=== PATIENT | male | born 1950 | race Caucasian/White ===

== ENCOUNTER 2023-05-13 17:21 | Inpatient (IN) | payer MEDICARE ==
[2023-05-13 20:06] LABS: Basophils # (A) 0.1 k/uL (0-0.2); Basophils % (A) 1 %; Eosinophils # (A) 0.1 k/uL (0-0.7); Eosinophils % (A) 1 %; HCT 47.2 % (39.0-53.0); Lymphocytes # (A) 1.8 k/uL (1.0-4.8); Lymphocytes % (A) 19 %; MCH 31.4 pg (25.0-35.0); MCV 92.3 fL (80.0-100.0); Mean Platelet Volume 9.4; Monocytes # (A) 0.7 k/uL (0-1.0); Monocytes % (A) 7 %; Neutrophils # (A) 6.8 k/uL (1.3-7.7); Neutrophils % (A) 71 %; Platelet Count 169 k/uL (150-450); RBC 5.11 m/uL (4.30-5.90); WBC 9.6 k/uL (3.8-10.6)
[2023-05-13 20:23] LABS: ALT 30 U/L (4-49); AST 41 U/L (17-59); African American GFR (CKD) 65 (>60 ml/min/1.73 sqM); Albumin 4.5 g/dL (3.5-5.0); Alkaline Phosphatase 67 U/L (38-126); Amylase 75 U/L (30-110); Anion Gap 12 mmol/L; Blood Urea Nitrogen 16 mg/dL (9-20); C Reactive Protein 3.4 mg/dL (<1.0); Calcium 9.2 mg/dL (8.4-10.2); Carbon Dioxide 23 mmol/L (22-30); Chloride 105 mmol/L (98-107); Glucose 85 mg/dL (74-99); Lipase 339 U/L (23-300); Non-African American GFR(CKD) 56 (>60 ml/min/1.73 sqM); Potassium 4.4 mmol/L (3.5-5.1); Sodium 140 mmol/L (137-145); Total Protein 7.8 g/dL (6.3-8.2)
--- NOTE | 2023-05-13 21:40 | CT ---
EXAMINATION TYPE: CT abdomen pelvis wo con DATE OF EXAM: 05/13/2023 COMPARISON: None HISTORY: 72-year-old male abdominal pain, possible diverticulitis CT DLP: 1322.4 mGycm. Automated exposure control for dose reduction was used. TECHNIQUE: Contiguous axial scanning of the abdomen and pelvis without IV contrast. Coronal and sagit vianney reconstructions performed. FINDINGS: Heart normal size without pericardial effusion. RCA coronary artery calcifications noted. Some depend ent atelectasis posterior lung bases. No pleural effusion. Mildly diminished attenuation of the hepatic parenchyma. Findings compatible with hepatic steatosis. Small layering gallstones within the lumen of the gallbladder measuring up to 9 mm. Possible distal b ile duct choledocholithiasis with multiple stones measuring up to 5 mm, coronal image 51 and axial im age 33. Adrenal glands, spleen, and pancreas otherwise within normal limits. A number of bilateral renal cortical cysts measuring up to 4.9 cm. No dilated small bowel, free fluid, or free air. No mesenteric or retroperitoneal lymphadenopathy. Normal appendix. Mild stool burden. Left-sided colonic diverticulosis. There is moderate inflammatory wall thickening and surrounding fat stranding at the proximal sigmoid colon. Bladder nondistended. Patulous left inguinal canal. Normal size prostate gland. No abnormal fluid col lection in the pelvis or pelvic lymphadenopathy. Bones: Moderate to advanced multilevel spondylotic change. Possible focal severe spinal canal stenosi s L2-L3 and moderate at L3-L4. Baastrup's disease. IMPRESSION: 1. Exam positive for acute diverticulitis involving the proximal sigmoid colon with moderate associa rj inflammation. No abscess or air. 2. Possible distal bile duct choledocholithiasis with multiple stones measuring up to [address] with alkaline phosphatase and bilirubin levels. Patient may need to follow up with GI. No dandre bi liary ductal dilatation appreciated at this time. Additional cholelithiasis. 3. Hepatic steatosis. Multiple bilateral renal cysts measuring up to 4.9 cm.
[2023-05-13] MEDS ORDERED: LEVOFLOXACIN 750 MG TAB PO STA (22:31)
[2023-05-13] MEDS ORDERED: metroNIDAZOLE 500 MG TAB PO STA (22:31)
--- NOTE | 2023-05-13 22:33 | ED ---
Abdominal Pain HPI - General Chief Complaint: Abdominal Pain Stated Complaint: diverticulitis Time Seen by Provider: 05/13/23 19:33 Source: patient Mode of arrival: ambulatory Limitations: no limitations - History of Present Illness Initial Comments: This patient is 72-year-old man who resides in [place] but is now summering here. He states that he developed abdominal pain that seemed more in the left lower quadrant a number of days ago, and it has gradually seemed to worsen and now involves his entire low abdomen. He states that the symptoms are very similar to previous episode of diverticulitis that he had. He has not noted change in urination or bowel movements. There is nausea no vomiting. MD Complaint: abdominal pain -: days(s) Location: LLQ Radiation: none Migration to: no migration Severity: moderate Quality: dull Consistency: constant Improves With: nothing Worsens With: nothing Associated Symptoms: denies other symptoms - Related Data Home Medications Medication Instructions Recorded Confirmed Budesonide [Pulmicort Flexhaler] 1 puff INHALATION RT-HS 05/13/23 05/13/23 Cetirizine HCl [Zyrtec] 10 mg PO DAILY 05/13/23 05/13/23 Dexlansoprazole [Dexilant] 60 mg PO DAILY 05/13/23 05/13/23 Fluoride (Sodium) [Sodium Fluoride 1 applic DENTAL DAILY 05/13/23 05/13/23 5000 Plus] Fluticasone Nasal Campbell [Flonase 1 spray EA NOSTRIL HS 05/13/23 05/13/23 Nasal Campbell] Valsartan 320 mg PO DAILY 05/13/23 05/13/23 Zaleplon [Sonata] 10 mg PO HS 05/13/23 05/13/23 hydrALAZINE HCL [Apresoline] 50 mg PO BID 05/13/23 05/13/23 Previous Rx's Medication Instructions Recorded Ciprofloxacin HCl [Cipro] 500 mg PO Q12HR #14 tablet 05/13/23 metroNIDAZOLE [Flagyl] 500 mg PO TID #21 tab 05/13/23 HYDROcodone/APAP 5-325MG [[place] 1 tab PO Q6HR PRN 3 Days #12 tab 05/15/23 5-325] Allergies Allergy/AdvReac Type Severity Reaction Status Date / Time amoxicillin Allergy Rash/Hives Verified 05/13/23 22:52 Review of Systems ROS Statement: Those systems with pertinent positive or pertinent negative responses have been documented in the HPI. ROS Other: All systems not noted in ROS Statement are negative. Constitutional: Denies: fever, chills, weakness Respiratory: Denies: cough, dyspnea Cardiovascular: Denies: chest pain, palpitations Gastrointestinal: Reports: abdominal pain, nausea. Denies: vomiting, diarrhea, constipation, melena, hematochezia Genitourinary: Denies: dysuria, hematuria, testicular pain Musculoskeletal: Denies: back pain Skin: Denies: lesions Neurological: Denies: headache, weakness, numbness Past Medical History Past Medical History: Cancer, Hypertension Additional Past Medical History / Comment(s): diverticulitis 20 years ago, foot cancer, History of Any Multi-Drug Resistant Organisms: None Reported Past Surgical History: Back Surgery, Orthopedic Surgery Additional Past Surgical History / Comment(s): tumor removal left foot, toe fusion left big toe, bilateral knee surgeries, nasal surgery, Past Psychological History: No Psychological Hx Reported Smoking Status: Former smoker Past Alcohol Use History: Occasional Past Drug Use History: None Reported - Past Family History Mother Family Medical History: Hyperlipidemia General Exam Limitations: no limitations General appearance: alert, in no apparent distress Head exam: Present: atraumatic, normocephalic Eye exam: Present: normal appearance. Absent: scleral icterus, conjunctival injection Neck exam: Present: normal inspection Respiratory exam: Present: normal lung sounds bilaterally. Absent: respiratory distress, wheezes, rales, rhonchi, stridor, accessory muscle use Cardiovascular Exam: Present: regular rate, normal rhythm, normal heart sounds. Absent: systolic murmur, diastolic murmur, rubs, gallop GI/Abdominal exam: Present: soft, tenderness, normal bowel sounds. Absent: distended, guarding, rebound, rigid, mass, pulsatile mass, hernia exam: Present: normal inspection. Absent: scrotal swelling Extremities exam: Present: normal inspection, normal capillary refill. Absent: pedal edema, calf tenderness Back exam: Present: normal inspection. Absent: CVA tenderness (R), CVA t enderness (L) Neurological exam: Present: alert Skin exam: Present: warm, dry, intact, normal color. Absent: rash Course Vital Signs 05/13/23 17:25 Temperature 98.7 F Pulse Rate 96 Respiratory 18 Rate Blood Pressure 138/83 O2 Sat by Pulse 95 Oximetry Medical Decision Making - Medical Decision Making Patient is a 72-year-old man here with abdominal pain. The workup includes computed tomography scan which I interpreted to show area of diverticulitis. The patient be admitted to have further symptom control and antibiotic therapy. Was pt. sent in by a medical professional or institution ([facility], [facility], urgent care, hospital, or assisted...) When possible be specific @ -[No] Did you speak to anyone other than the patient for history (EMS, parent, family, police, friend...)? What history was obtained from this source @ -[No Did you review nursing and triage notes (agree or disagree)? Why? @ -[I reviewed and agree with nursing and triage notes] Were old charts reviewed (outside hosp., previous admission, EMS record, old EKG, old radiological studies, urgent care reports/EKG's, assisted records)? Report findings @ -[No old charts were reviewed] Differential Diagnosis (chest pain, altered mental status, abdominal pain women, abdominal pain men, vaginal bleeding, weakness, fever, dyspnea, syncope, headache, dizziness, GI bleed, back pain, seizure, CVA, palpatations, mental health, musculoskeletal)? @ -[Differential Abdominal Pain Men: Appendicitis, cholecystitis, diverticulosis, ischemic bowel, pancreatitis, hepatitis, UTI, gastroenteritis, AAA, incarcerated hernia, bowel obstruction, constipation, inflammatory bowel, hepatitis, peptic ulcer disease, splenic infarction, perforated viscus, testicular torsion, this is not meant to be an all-inclusive list EKG interpreted by me (3pts min.). @ -[As above] X-rays interpreted by me (1pt min.). @ -[None done] CT interpreted by me (1pt min.). @ -[As above U/S interpreted by me (1pt. min.). @ -[None done] What testing was considered but not performed or refused? (CT, X-rays, U/S, labs )? Why? @ -[None] What meds were considered but not given or refused? Why? @ -[None] Did you discuss the management of the patient with other professionals (professionals i.e. [facility], [employer], lab, RT, psych nurse, social and human services assistant, actuarial assistant, teacher, information officer, case finishing machine adjuster)? Give summary @ -[Case discussed with admitting physician Was smoking cessation discussed for >3mins.? @ -[No] Was critical care preformed (if so, how long)? @ -[No] Were there social determinants of health that impacted care today? How? (Homelessness, low income, unemployed, alcoholism, drug addiction, transportation, low edu. Level, literacy, decrease access to med. care, detention, rehab)? @ -[No] Was there de-escalation of care discussed even if they declined (Discuss DNR or withdrawal of care, Hospice)? DNR status @ -[No] What co-morbidities impacted this encounter? (DM, HTN, Smoking, COPD, CAD, Cancer, CVA, ARF, Chemo, Hep., AIDS, mental health diagnosis, sleep apnea, morbid obesity)? @ -[None] Was patient admitted / discharged? Hospital course, mention meds given and route, prescriptions, significant lab abnormalities, going to OR and other pertinent info. @ -[Admitted for antibiotic therapy and symptom control Undiagnosed new problem with uncertain prognosis? @ -[No] Drug Therapy requiring intensive monitoring for toxicity (Heparin, Nitro, Insulin, Cardizem)? @ -[No] Were any procedures done? @ -[No] Diagnosis/symptom? @ -[Acute diverticulitis, uncomplicated Acute, or Chronic, or Acute on Chronic? @ -[default] Uncomplicated (without systemic symptoms) or Complicated (systemic symptoms)? @ -[default] Side effects of treatment? @ -[No] Exacerbation, Progression, or Severe Exacerbation? @ -[No] Poses a threat to life or bodily function? How? (Chest pain, [place], [place], pneumonia, PE, COPD, DKA, ARF, appy, cholecystitis, CVA, Diverticulitis, Homicidal, Suicidal, threat to staff... and all critical care pts) @ -[No] - Lab Data Result diagrams: 05/13/23 19:45 05/13/23 19:45 Lab Results 05/13/23 05/13/23 Range/Units 19:45 19:45 WBC 9.6 (3.8-10.6) k/uL RBC 5.11 (4.30-5.90) m/uL Hgb 16.0 (13.0-17.5) gm/dL Hct 47.2 (39.0-53.0) % MCV 92.3 (80.0-100.0) fL MCH 31.4 (25.0-35.0) pg MCHC 34.0 (31.0-37.0) g/dL RDW 15.0 (11.5-15.5) % Plt Count 169 (150-450) k/uL MPV 9.4 Neutrophils % 71 % Lymphocytes % 19 % Monocytes % 7 % Eosinophils % 1 % Basophils % 1 % Neutrophils # 6.8 (1.3-7.7) k/uL Lymphocytes # 1.8 (1.0-4.8) k/uL Monocytes # 0.7 (0-1.0) k/uL Eosinophils # 0.1 (0-0.7) k/uL Basophils # 0.1 (0-0.2) k/uL Sodium 140 (137-145) mmol/L Potassium 4.4 (3.5-5.1) mmol/L Chloride 105 (98-107) mmol/L Carbon Dioxide 23 (22-30) mmol/L Anion Gap 12 mmol/L BUN 16 (9-20) mg/dL Creatinine 1.29 H (0.66-1.25) mg/dL Est GFR (CKD-EPI)AfAm 65 (>60 ml/min/1.73 sqM) Est GFR (CKD-EPI)NonAf 56 (>60 ml/min/1.73 sqM) Glucose 85 (74-99) mg/dL Calcium 9.2 (8.4-10.2) mg/dL Total Bilirubin 1.0 (0.2-1.3) mg/dL AST 41 (17-59) U/L ALT 30 (4-49) U/L Alkaline Phosphatase 67 (38-126) U/L C-Reactive Protein 3.4 H (<1.0) mg/dL Total Protein 7.8 (6.3-8.2) g/dL Albumin 4.5 (3.5-5.0) g/dL Amylase 75 (30-110) U/L Lipase 339 H (23-300) U/L Disposition Clinical Impression: Abdominal pain, Diverticulitis Disposition: ADMITTED IP TO THIS HOSP Condition: Good Is patient prescribed a controlled substance at d/c from ED?: No
[2023-05-13] MEDS ORDERED: ONDANSETRON 4 MG/2 ML VIAL IVP PRN (22:44)
[2023-05-13] MEDS ORDERED: NALOXONE 0.4 MG/ML 1 ML VIAL IV PRN (22:44)
[2023-05-13] MEDS ORDERED: ACETAMINOPHEN TAB 325 MG TAB PO PRN (22:44)
--- NOTE | 2023-05-13 22:53 | P.HPIM ---
History of Present Illness H&P Date: 05/13/23 The patient is 72-year-old male with a PMH of hypertension and prior episode of diverticulitis in 2002 who presents to the emergency room with complaints of left lower quadrant abdominal pain. The patient reports that his symptoms started this past the mild left lower quadrant abdominal discomfort without any associated symptoms. The pain was 4 out of 10 at maximal intensity, with no alleviating or exacerbating features. The patient reports that he had subsequently had diarrhea on Friday which then resolved within 24 hours. He reports that his pain however gradually worsened over the past 48 hours at which point he decided to come to the emergency room. At time of interview, he reports ongoing for out of 10 pain of the left lower quadrant. Denied experiencing fevers, chills, chest pain, shortness of breath, nausea, or vomiting. He reports his symptoms are similar to his prior episode of diverticulitis 20 years ago. The patient states that he is currently visiting from [place] as they have a house boat in [place] where they stay over the summertime. In the emergency room, CT abdomen and pelvis without contrast reveals findings consistent with acute diverticulitis with possible distal bile duct choledocholithiasis with multiple stones as well as hepatic steatosis with multiple bilateral renal cysts measuring up to 4.9 cm. Laboratory evaluation was remarkable for creatinine 1.29, CRP 3.4, and lipase of 339. ED documentation reviewed and case discussed with ED provider. Review of systems: Pertinent positives and negatives as discussed in HPI, a complete review of systems was performed and all other systems are negative. Physical examination: Vital signs reviewed General: non toxic, no distress, appears at stated age, obese Derm: no unusual rashes/lesions, warm Head: atraumatic, normocephalic, symmetric Eyes: EOMI, no lid lag, anicteric sclera, pupils equal round reactive to light ENT: Nose and ears atraumatic Neck: No cervical lymphadenopathy, trachea midline, supple Mouth: no lip lesion, mucus membranes moist Cardiovascular: S1S2 reg, no murmur, positive dorsalis pedis pulse bilateral, no edema Lungs: CTA bilateral, no rhonchi, no rales, no accessory muscle use Abdominal: soft, mild left lower quadrant tenderness to palpation, no guarding Ext: muscle strength 5 out of 5 in all 4 extremities grossly, no gross muscle atrophy, no contractures, Neuro: CN II-XI grossly intact, no gross focal neuro deficits Psych: Alert, oriented, appropriate affect Assessment: Acute diverticulitis, mild Kidney injury, acute versus chronic Chronic conditions: Hypertension Imaging: In the emergency room, CT abdomen and pelvis without contrast reveals findings consistent with acute diverticulitis with possible distal bile duct choledocholithiasis with multiple stones as well as hepatic steatosis with multiple bilateral renal cysts measuring up to 4.9 cm. Data Review: Laboratory evaluation was remarkable for creatinine 1.29, CRP 3.4, and lipase of 339. Plan: Continue with IV antibiotics Flagyl and Levaquin IV fluids with normal saline 130 mL/hr Pain control with morphine DVT prophylaxis: Heparin subcu The patient is admitted with an anticipated less than 2 midnight stay for evaluation of acute diverticulitis CODE STATUS: Full Code Discussed with: Patient Anticipated discharge date: in am Anticipated discharge place: Home Past Medical History Past Medical History: Cancer, Hypertension Additional Past Medical History / Comment(s): diverticulitis 20 years ago, foot cancer, History of Any Multi-Drug Resistant Organisms: None Reported Past Surgical History: Back Surgery, Orthopedic Surgery Additional Past Surgical History / Comment(s): tumor removal left foot, toe fusion left big toe, bilateral knee surgeries, nasal surgery, Past Psychological History: No Psychological Hx Reported Smoking Status: Former smoker Past Alcohol Use History: Occasional Past Drug Use History: None Reported - Past Family History Mother Family Medical History: Hyperlipidemia Medications and Allergies Home Medications Medication Instructions Recorded Confirmed Type Ciprofloxacin HCl [Cipro] 500 mg PO Q12HR #14 tablet 05/13/23 Rx metroNIDAZOLE [Flagyl] 500 mg PO TID #21 tab 05/13/23 Rx Allergies Allergy/AdvReac Type Severity Reaction Status Date / Time amoxicillin Allergy Rash/Hives Verified 05/13/23 22:52 Physical Exam Vitals: Vital Signs Temp Pulse Resp BP Pulse Ox 05/13/23 17:25 98.7 F 96 18 138/83 95 Intake and Output 05/13/23 05/13/23 05/13/23 06:59 14:59 22:59 Other: Weight 117.934 kg Results CBC & Chem 7: 05/13/23 19:45 05/13/23 19:45 Labs: Abnormal Lab Results - Last 24 Hours (Table) 05/13/23 Range/Units 19:45 Creatinine 1.29 H (0.66-1.25) mg/dL C-Reactive Protein 3.4 H (<1.0) mg/dL Lipase 339 H (23-300) U/L
[2023-05-13] MEDS ORDERED: MORPHINE SULFATE 4 MG/ML SYRINGE ONE (23:54)
[2023-05-14] MEDS ORDERED: metroNIDAZOLE 500 MG TAB ONE
[2023-05-14] MEDS ORDERED: LEVOFLOXACIN 750 MG TAB ONE
[2023-05-14] MEDS ORDERED: MORPHINE SULFATE 4 MG/ML SYRINGE ONE ×2 (03:59)
[2023-05-14] MEDS: SODIUM CHLORIDE 0.9% 1,000 ML IV SCH ×3 (05:18→07:45)
[2023-05-14] MEDS: metroNIDAZOLE-NS PMX 500 MG in SALINE 1 100ML.BAG IVPB SCH ×3 (06:54→22:31)
[2023-05-14] MEDS: FAMOTIDINE 20 MG TAB PO SCH ×2 (07:45→20:29)
[2023-05-14] MEDS: MORPHINE SULFATE 4 MG/ML SYRINGE IV PRN ×3 (07:55→20:30)
[2023-05-14] MEDS: LORATADINE 10 MG TAB PO SCH (08:43)
[2023-05-14] MEDS: hydrALAZINE HCL 50 MG TAB PO SCH ×2 (08:43→20:29)
[2023-05-14] MEDS: VALSARTAN 160 MG TAB PO SCH (08:43)
[2023-05-14] MEDS: PANTOPRAZOLE 40 MG TABLET PO SCH (08:46)
--- NOTE | 2023-05-14 13:18 | P.PN ---
Subjective Progress Note Date: 05/14/23 The patient is 72-year-old male with a PMH of hypertension and prior episode of diverticulitis in 2002 who presents to the emergency room with complaints of left lower quadrant abdominal pain. The patient reports that his symptoms started this past the mild left lower quadrant abdominal discomfort without any associated symptoms. In the emergency room, CT abdomen and pelvis without contrast reveals findings consistent with acute diverticulitis with possible distal bile duct choledocholithiasis with multiple stones as well as hepatic steatosis with multiple bilateral renal cysts measuring up to 4.9 cm. Laboratory evaluation was remarkable for creatinine 1.29, CRP 3.4, and lipase of 339. Patient was seen and examined. No acute events overnight. Patient reports left lower quadrant abdominal pain, 4-10 in severity. Currently requiring morphine as needed for pain control. He denies any nausea or vomiting. No fever or chills. General: non toxic, no distress, appears at stated age Derm: warm, dry Head: atraumatic, normocephalic, symmetric Eyes: EOMI, no lid lag, anicteric sclera Cardiovascular: S1S2 reg, no murmur Lungs: CTA bilateral, no rhonchi, no rales , no accessory muscle use Abdominal: soft, left lower quadrant tenderness to palpation without rebound, no guarding, no appreciable organomegaly, Garcia's negative Ext: no gross muscle atrophy, no edema, no contractures Neuro: no focal neuro deficits Psych: Alert, oriented, appropriate affect Acute diverticulitis, mild Kidney injury, acute versus chronic Cholelithiasis with possible choledocholithiasis Chronic conditions: Hypertension Based on my assessment of this patient, this patient meets a moderate complexity level of care. Patient has an acute diagnosis of acute diverticulitis that poses a threat to li fe or bodily function. Patient is currently requiring morphine 4 mg IV every 4 hours as needed for pain. Continue levofloxacin 750 mg by mouth daily along with Flagyl 500 mg IV every 8 hours. He is advised he will need a colonoscopy after resolution of his diverticulitis. Clear liquid diet and advance as tolerated. CT findings suggest possible choledocholithiasis. However, his liver enzymes are within normal limits. His abdominal exam is benign. He will need follow-up with gastric neurology in the outpatient setting. I have reviewed the following senior energy consultant notes: None. I have reviewed the results of the following tests: None. I have ordered the following tests: CMP ordered for tomorrow morning. I have discussed the care of this patient with the following independent historian: None. I have independently interpreted the following test below: None. I have discussed the management of this patient with the following physician: None. Lovenox SQ for DVT prophylaxis. Anticipated discharge home tomorrow if able to tolerate diet and pain adequately controlled without IV narcotics. Objective - Vital Signs Vital signs: Vital Signs Temp 97.0 F L 05/14/23 07:16 Pulse 76 05/14/23 07:16 Resp 17 05/14/23 07:16 BP 153/81 05/14/23 07:16 Pulse Ox 98 05/14/23 07:16 FiO2 Intake & Output 05/13/23 05/14/23 05/14/23 18:59 06:59 18:59 Weight 117.934 kg Other: # Voids 3 - Labs CBC & Chem 7: 05/13/23 19:45 05/13/23 19:45 Labs: Abnormal Lab Results - Last 24 Hours (Table) 05/13/23 Range/Units 19:45 Creatinine 1.29 H (0.66-1.25) mg/dL C-Reactive Protein 3.4 H (<1.0) mg/dL Lipase 339 H (23-300) U/L
[2023-05-14] MEDS ORDERED: LEVOFLOXACIN 750 MG TAB PO SCH (21:00)
[2023-05-14] MEDS ORDERED: FLUTICASONE 50MCG/SPRAY NASAL 16GM EA NOSTRIL SCH (21:00)
[2023-05-14] MEDS: FLUTICASONE 110 MCG INHALER INHALATION SCH (21:56)
[2023-05-15] MEDS: SODIUM CHLORIDE 0.9% 1,000 ML IV SCH ×2 (03:45→06:19)
[2023-05-15] MEDS: PANTOPRAZOLE 40 MG TABLET PO SCH (06:20)
[2023-05-15] MEDS: metroNIDAZOLE-NS PMX 500 MG in SALINE 1 100ML.BAG IVPB SCH (06:21)
[2023-05-15] MEDS: FLUTICASONE 110 MCG INHALER INHALATION SCH (07:54)
[2023-05-15] MEDS: VALSARTAN 160 MG TAB PO SCH (07:57)
[2023-05-15] MEDS: LORATADINE 10 MG TAB PO SCH (07:57)
[2023-05-15] MEDS: hydrALAZINE HCL 50 MG TAB PO SCH (07:57)
[2023-05-15] MEDS: FAMOTIDINE 20 MG TAB PO SCH (07:57)
[2023-05-15] MEDS ORDERED: ENOXAPARIN 40 MG/0.4 ML SYRINGE SQ SCH (09:00)
--- NOTE | 2023-05-15 11:31 | P.DS ---
Providers Date of admission: 05/13/23 22:44 Expected date of discharge: 05/15/23 Attending physician: José Luis Arellano MD Primary care physician: Stated None Hospital Course: The patient is 72-year-old male with a PMH of hypertension and prior episode of diverticulitis in 2002 who presents to the emergency room with complaints of left lower quadrant abdominal pain. The patient reports that his symptoms started this past the mild left lower quadrant abdominal discomfort without any associated symptoms. In the emergency room, CT abdomen and pelvis without contrast reveals findings consistent with acute diverticulitis with possible distal bile duct choledocholithiasis with multiple stones as well as hepatic steatosis with multiple bilateral renal cysts measuring up to 4.9 cm. Laboratory evaluation was remarkable for creatinine 1.29, CRP 3.4, and lipase of 339. Patient was started on levofloxacin and Flagyl for treatment of diverticulitis. He was started on clear liquid diet and advanced as tolerated. His abdominal pain improved during his hospitalization. Patient was seen and examined. No acute events overnight. Patient reports well-controlled pain in his abdomen. No nausea or vomiting. No fever or chills. Patient will be discharged with ciprofloxacin and Flagyl for treatment of diverticulitis. He is advised he will need a colonoscopy after resolution of his diverticulitis. CT findings suggesting possible choledocholithiasis discussed with the patient. He is advised to follow up with Gastroenterology for further workup and management. Patient verbalized understanding of the plan. Pertinent studies include CTAP. General: non toxic, no distress, appears at stated age Derm: warm, dry Head: atraumatic, normocephalic, symmetric Eyes: EOMI, no lid lag, anicteric sclera Cardiovascular: S1S2 reg, no murmur Lungs: CTA bilateral, no rhonchi, no rales , no accessory muscle use Abdominal: soft, left lower quadrant tenderness to palpation without rebound, no guarding, no appreciable organomegaly, Garcia's negative, positive bowel sounds Ext: no gross muscle atrophy, no edema, no contractures Neuro: no focal neuro deficits Psych: Alert, oriented, appropriate affect Discharge Diagnosis: Acute diverticulitis, mild Kidney injury, acute versus chronic Cholelithiasis with possible choledocholithiasis Chronic conditions: Hypertension This complex discharge took 35 minutes to complete. Patient Condition at Discharge: Good Plan - Discharge Summary New Discharge Prescriptions: New Ciprofloxacin HCl [Cipro] 500 mg PO Q12HR #14 tablet metroNIDAZOLE [Flagyl] 500 mg PO TID #21 tab HYDROcodone/APAP 5-325MG [[place] 5-325] 1 tab PO Q6HR PRN 3 Days #12 tab PRN Reason: Pain Continue Valsartan 320 mg PO DAILY Fluoride (Sodium) [Sodium Fluoride 5000 Plus] 1 applic DENTAL DAILY Budesonide [Pulmicort Flexhaler] 1 puff INHALATION RT-HS hydrALAZINE HCL [Apresoline] 50 mg PO BID Zaleplon [Sonata] 10 mg PO HS Fluticasone Nasal [place] [Flonase Nasal [place]] 1 spray EA NOSTRIL HS Dexlansoprazole [Dexilant] 60 mg PO DAILY Cetirizine HCl [Zyrtec] 10 mg PO DAILY Discharge Medication List Budesonide [Pulmicort Flexhaler] 1 puff INHALATION RT-HS 05/13/23 [History] Cetirizine HCl [Zyrtec] 10 mg PO DAILY 05/13/23 [History] Ciprofloxacin HCl [Cipro] 500 mg PO Q12HR #14 tablet 05/13/23 [Rx] Dexlansoprazole [Dexilant] 60 mg PO DAILY 05/13/23 [History] Fluoride (Sodium) [Sodium Fluoride 5000 Plus] 1 applic DENTAL DAILY 05/13/23 [History] Fluticasone Nasal [place] [Flonase Nasal [place]] 1 spray EA NOSTRIL HS 05/13/23 [History] Valsartan 320 mg PO DAILY 05/13/23 [History] Zaleplon [Sonata] 10 mg PO HS 05/13/23 [History] hydrALAZINE HCL [Apresoline] 50 mg PO BID 05/13/23 [History] metroNIDAZOLE [Flagyl] 500 mg PO TID #21 tab 05/13/23 [Rx] HYDROcodone/APAP 5-325MG [[place] 5-325] 1 tab PO Q6HR PRN 3 Days #12 tab 05/15/23 [Rx] Follow up Appointment(s)/Referral(s): Geovanna Foster MD [STAFF PHYSICIAN] - 1-2 days None,Stated [Primary Care Provider] - 1-2 days (Please call for appointment.) Patient Instructions/Handouts: Diverticulitis (DC) Discharge Disposition: HOME SELF-CARE
[2023-05-15 14:41] VITALS: BP 156/79; PULSE 83; RESP 17; TEMP 98.4
== END 2023-05-15 14:18 | disposition home or self-care (01) | DRG 392 ==
LOC: EC 17:21 → 4SSUR 22:44
PROVIDERS: ADMIT Internal Medicine; ATTEND Internal Medicine
DX: K57.92 Diverticulitis of intestine, part unspecified, without perforation or abscess without bleeding (principal); K80.20 Calculus of gallbladder without cholecystitis without obstruction; N19 Unspecified kidney failure; N28.1 Cyst of kidney, acquired; I10 Essential (primary) hypertension; Z87.891 Personal history of nicotine dependence; Z98.1 Arthrodesis status; Z88.0 Allergy status to penicillin
CPT/HCPCS: 36415; 74176; 80053; 82150; 83690; 85025; 86140; 93005; 94640; 99285

== ENCOUNTER 2023-06-11 11:16 | Emergency (ER) | payer MEDICARE, OTHER ==
[2023-06-11] MEDS ORDERED: SODIUM CHLORIDE 0.9% 1,000 ML IV STA (12:25)
[2023-06-11] MEDS ORDERED: ORPHENADRINE 30 MG/ML 2 ML VIAL IVP STA (12:25)
--- NOTE | 2023-06-11 12:30 | ED ---
Back Pain HPI - General Chief Complaint: Back Pain/Injury Stated Complaint: Back Pain Time Seen by Provider: 06/11/23 11:35 Source: patient Limitations: no limitations - History of Present Illness Initial Comments: 72-year-old male presents to ED with a chief complaint of back pain. Patient states approximately a week ago "twisted his back wrong". Since then has had lower right back pain. States today tried to bend down to pick something up and was unable to. Denies numbness in the groin. Denies incontinence. Denies dysuria or hematuria. No other complaints. - Related Data Home Medications Medication Instructions Recorded Confirmed Budesonide [Pulmicort Flexhaler] 1 puff INHALATION RT-HS 05/13/23 05/13/23 Cetirizine HCl [Zyrtec] 10 mg PO DAILY 05/13/23 05/13/23 Dexlansoprazole [Dexilant] 60 mg PO DAILY 05/13/23 05/13/23 Fluoride (Sodium) [Sodium Fluoride 1 applic DENTAL DAILY 05/13/23 05/13/23 5000 Plus] Fluticasone Nasal [place] [Flonase 1 spray EA NOSTRIL HS 05/13/23 05/13/23 Nasal [place]] Valsartan 320 mg PO DAILY 05/13/23 05/13/23 Zaleplon [Sonata] 10 mg PO HS 05/13/23 05/13/23 hydrALAZINE HCL [Apresoline] 50 mg PO BID 05/13/23 05/13/23 Previous Rx's Medication Instructions Recorded Ciprofloxacin HCl [Cipro] 500 mg PO Q12HR #14 tablet 05/13/23 metroNIDAZOLE [Flagyl] 500 mg PO TID #21 tab 05/13/23 HYDROcodone/APAP 5-325MG [Comfort 1 tab PO Q6HR PRN 3 Days #12 tab 05/15/23 5-325] methocarbamoL [Robaxin] 500 mg PO TID PRN #15 tab 06/11/23 Allergies Allergy/AdvReac Type Severity Reaction Status Date / Time amoxicillin Allergy Rash/Hives Verified 06/11/23 11:26 Review of Systems ROS Statement: Those systems with pertinent positive or pertinent negative responses have been documented in the HPI. ROS Other: All systems not noted in ROS Statement are negative. Past Medical History Past Medical History: Cancer, Hypertension Additional Past Medical History / Comment(s): diverticulitis 20 years ago, foot cancer, History of Any Multi-Drug Resistant Organisms: None Reported Past Surgical History: Back Surgery, Orthopedic Surgery Additional Past Surgical History / Comment(s): tumor removal left foot, toe fusion left big toe, bilateral knee surgeries, nasal surgery, Past Psychological History: No Psychological Hx Reported Smoking Status: Former smoker Past Alcohol Use History: Occasional Past Drug Use History: None Reported - Past Family History Mother Family Medical History: Hyperlipidemia General Exam Limitations: no limitations General appearance: alert Head exam: Present: atraumatic Neck exam: Present: other (No midline cervical spinal tenderness to palpation) Respiratory exam: Present: normal lung sounds bilaterally Cardiovascular Exam: Present: regular rate, normal rhythm GI/Abdominal exam: Present: soft, other (Right CVA tenderness to palpation) Rectal exam: Present: deferred Extremities exam: Present: other (Strength and sensation intact bilateral upper and lower extremities.) Back exam: Present: other (No midline thoracic or lumbar spinal tenderness to palpation. Right lumbar paraspinal tenderness to palpation) Neurological exam: Present: alert, oriented X3 Skin exam: Present: warm, dry Course Vital Signs 06/11/23 06/11/23 06/11/23 11:22 13:26 14:45 Temperature 98.1 F Pulse Rate 80 69 65 Respiratory 18 20 20 Rate Blood Pressure 139/87 145/69 164/86 O2 Sat by Pulse 97 99 96 Oximetry Medical Decision Making - Medical Decision Making Was pt. sent in by a medical professional or institution (, PA, SUPERVISOR UNLOADING, urgent care, hospital, or residential...) When possible be specific @ -No Did you speak to anyone other than the patient for history (EMS, parent, family, police, friend...)? What history was obtained from this source @ -No Did you review nursing and triage notes (agree or disagree)? Why? @ -I reviewed and agree with nursing and triage notes Were old charts reviewed (outside hosp., previous admission, EMS record, old EKG, old radiological studies, urgent care reports/EKG's, residential records)? Report findings @ -No old charts were reviewed Differential Diagnosis (chest pain, altered mental status, abdominal pain women, abdominal pain men, vaginal bleeding, weakness, fever, dyspnea, syncope, headache, dizziness, GI bleed, back pain, seizure, CVA, palpatations, mental health, musculoskeletal)? @ -Differential Back Pain: Strain, zoster, cauda equina syndrome, epidural abscess, vertebral osteomyelitis, discitis, fracture, subluxation, disc herniation, DJD, spinal stenosis, dissection, AAA, pancreatitis, peptic ulcer disease, pyelonephritis, kidney stone, this is not meant to be an all-inclusive list. EKG interpreted by me (3pts min.). @ -None X-rays interpreted by me (1pt min.). @ -X-ray lumbar spine showed generative changes, no acute findings. CT interpreted by me (1pt min.). @ -CT showed no acute findings, diverticulitis improved from prior visit. At this time, patient asymptomatic for diverticulitis. U/S interpreted by me (1pt. min.). @ -None done What testing was considered but not performed or refused? (CT, X-rays, U/S, labs)? Why? @ -None What meds were considered but not given or refused? Why? @ -None Did you discuss the management of the patient with other professionals (professionals i.e. , PA, SUPERVISOR [employer]LOADING, lab, RT, psych nurse, socially responsible investment adviser, office copy selector, teacher, strike operations officer, casework supervisor)? Give summary @ -No Was smoking cessation discussed for >3mins.? @ -No Was critical care preformed (if so, how long)? @ -No Were there social determinants of health that impacted care today? How? (Homel essness, low income, unemployed, alcoholism, drug addiction, transportation, low edu. Level, literacy, decrease access to med. care, alf, rehab)? @ -No Was there de-escalation of care discussed even if they declined (Discuss DNR or withdrawal of care, Hospice)? DNR status @ -No What co-morbidities impacted this encounter? (DM, HTN, Smoking, COPD, CAD, Cancer, CVA, ARF, Chemo, Hep., AIDS, mental health diagnosis, sleep apnea, morbid obesity)? @ -None Was patient admitted / discharged? Hospital course, mention meds given and route, prescriptions, significant lab abnormalities, going to OR and other pertinent info. @ -Discharge. Patient had improvement of pain here with morphine, Toradol, Norflex. Patient will be discharged home with prescription for Robaxin with follow-up to orthopedics. Discussed return precautions with patient and family who verbalizes agreement. Undiagnosed new problem with uncertain prognosis? @ -No Drug Therapy requiring intensive monitoring for toxicity (Heparin, Nitro, Insulin, Cardizem)? @ -No Were any procedures done? @ -No Diagnosis/symptom? @ -Back Pain Acute, or Chronic, or Acute on Chronic? @ -Acute Uncomplicated (without systemic symptoms) or Complicated (systemic symptoms)? @ -default Side effects of treatment? @ -No Exacerbation, Progression, or Severe Exacerbation? @ -No Poses a threat to life or bodily function? How? (Chest pain, [place], [place], pneumonia, PE, COPD, DKA, ARF, appy, cholecystitis, CVA, Diverticulitis, Homicidal, Suicidal, threat to staff... and all critical care pts) @ -No - Lab Data Lab Results 06/11/23 Range/Units 14:10 Urine Color Yellow Urine Appearance Clear (Clear) Urine pH 6.0 (5.0-8.0) Ur Specific [place] 1.014 (1.001-1.035) Urine Protein Negative (Negative) Urine Glucose (UA) Negative (Negative) Urine Ketones Negative (Negative) Urine Blood Negative (Negative) Urine Nitrite Negative (Negative) Urine Bilirubin Negative (Negative) Urine Urobilinogen <2.0 (<2.0) mg/dL Ur Leukocyte Esterase Negative (Negative) Disposition Clinical Impression: Back pain Disposition: HOME SELF-CARE Condition: Good Instructions (If sedation given, give patient instructions): Acute Low Back Pain (ED) Additional Instructions: Please return to the Emergency Department if symptoms worsen or any other concerns. Prescriptions: methocarbamoL [Robaxin] 500 mg PO TID PRN #15 tab PRN Reason: muscle spasms Is patient prescribed a controlled substance at d/c from ED?: No Referrals: None,Stated [Primary Care Provider] - 1-2 days Time of Disposition: 15:07
[2023-06-11] MEDS ORDERED: KETOROLAC 15 MG/ML 1 ML VIAL IVP STA (13:18)
--- NOTE | 2023-06-11 13:20 | XR ---
EXAM TYPE: LUMBAR SPINE X RAY SERIES COMPARISON: NONE HISTORY: Pain TECHNIQUE: 3 views are submitted. FINDINGS: Alignment is anatomic. The pedicles are intact. The transverse processes are intact. There is mult ilevel severe degenerative disc disease, facet arthropathy and hypertrophic spurring. There is a 4 mm retrolisthesis of L3 relative to L4 and L2 relative to L3. Suspect foraminal encroachment at multipl e levels. Incidental note made of multiple gallstones. Vascular calcification of the aorta. SI joints symmetric . IMPRESSION: 1. Severe multilevel degenerative disc disease and facet arthropathy with multilevel foraminal encroa chment suspected. There likely is canal stenosis at multiple levels. Recommend follow-up MRI. 2. Cholelithiasis
[2023-06-11] MEDS ORDERED: MORPHINE SULFATE 4 MG/ML SYRINGE IVP STA (14:22)
[2023-06-11 14:43] VITALS: RESP 20
[2023-06-11 14:50] LABS: Appearance,Urine Clear (Clear); Bilirubin,Urine Negative (Negative); Blood,Urine Negative (Negative); Color,Urine Yellow; Glucose,Urine (UA) Negative (Negative); Ketones,Urine Negative (Negative); Leukocyte Esterase,Urine Negative (Negative); Nitrite,Urine Negative (Negative); Protein,Urine Negative (Negative); Specific Gravity,Urine 1.014 (1.001-1.035); Urobilinogen,Urine <2.0 mg/dL (<2.0)
--- NOTE | 2023-06-11 14:54 | CT ---
EXAMINATION TYPE: CT abdomen pelvis wo con DATE OF EXAM: 06/11/2023 COMPARISON: 05/13/2023 HISTORY: 72-year-old male rule out kidney stone, back pain CT DLP: 1309.4 mGycm. Automated exposure control for dose reduction was used. TECHNIQUE: Contiguous axial scanning of the abdomen and pelvis without IV contrast. Coronal and sagit vianney reconstructions performed. FINDINGS: Heart appears normal size. Strandy atelectasis in the lower lungs. The patient is breathing during th e scan. The extreme right hepatic dome is excluded from view. Multiple small gallstones measuring up to 1.3 cm. No abnormal gallbladder distention. There is choledocholithiasis with a string of small calculi spanning 2.0 cm in the distal bile duct. Individual stones measure up to 7 mm. No abnormal gallbladder distention. Adrenal glands, spleen, and pancreas show no gross abnormal body. Bilateral renal cysts redemonstrated measuring up to 5.1 cm on either side. No hydronephrosis. Mild atherosclerotic calcifications infrarenal abdominal aorta without aneurysm. Small fatty umbilical hernia. No dilated small bowel, free fluid, or free air. No mesenteric or retroperitoneal lymphadenopathy. Mi ld stool burden. Normal appendix. There is lower descending and sigmoid diverticulosis. Mild wall thickening and mild pericolonic fat s tranding at the junction of the descending and sigmoid colon. The overall appearance is however impro harry from 05/13/2023. Bladder distended. No abnormal fluid collection in the pelvis or pelvic lymphadenopathy. Bones: Mild to moderate degenerative change of the hips. Advanced hypertrophic facet arthropathy thro ughout. Patient's lower thoracic spine. Degenerative trace grade 1 retrolisthesis L2-L3 and L3-L4. Po ssible severe focal spinal canal stenosis L2/L3 from disc osteophyte complex. IMPRESSION: 1. Left-sided colonic diverticulosis. There may be very mild fat stranding at the junction of the de scending and sigmoid colon. Correlate for possible recurrent mild acute diverticulitis. Overall appea carly is not as bad as compared to 05/13/2023. No abscess or free air. 2. Redemonstrated choledocholithiasis with stones measuring up to 7 mm. Correlate with alkaline phos phatase and bilirubin levels. No gallbladder hydrops to clearly indicate biliary obstruction.
[2023-06-11 15:02] VITALS: BP 164/86; PULSE 65
[2023-06-11] MEDS ORDERED: ACET/COD 300 MG/30 MG STARTER PACK 6 TAB BTL PO STA (15:03)
[2023-06-11 19:37] VITALS: TEMP 98.2
== END 2023-06-11 15:30 | disposition home or self-care (01) ==
LOC: EC 11:16
DX: M54.50 Low back pain, unspecified (principal); I10 Essential (primary) hypertension; Z87.891 Personal history of nicotine dependence; Z88.0 Allergy status to penicillin; Z79.899 Other long term (current) drug therapy
CPT/HCPCS: 81003; 72100; 74176; 99284; 96374; 96375 ×2; 96361; J2270; J2360; J1885

== ENCOUNTER → 2023-07-08 | Outpatient (CLI) | payer MEDICARE, OTHER ==
--- NOTE | 2023-07-08 16:27 | CTL ---
EXAMINATION TYPE: CT Low Dose Lung DATE OF EXAM: 07/08/2023 2:30 PM CLINICAL INDICATION:Male, 72 years old with history of Z12.2 Z87.891; Screening for malignant neoplas m , history of tobacco use. COMPARISON: None. TECHNIQUE: Multiple axial non-contrast scans were obtained from approximately the lung apices through the upper abdomen. Coronal and sagittal reformatted images were obtained. Low dose technique was uti lized. CT DLP: 167 mGycm, Automated exposure control for dose reduction was used. CT Contrast: Contrast used: None Oral contrast used: None FINDINGS: ======== Lack of intravenous contrast and low dose technique limits the evaluation of the vascular and soft ti ssue structures. LUNGS: No evidence of pulmonary fibrosis. No evidence of focal consolidation, pneumothorax or pleural effusion. Mild centrilobular emphysema changes. Nodules: RUL: None. RML: Minor fissure anterior fissural lymph node. RLL: None. LEONEL: None. LLL: 3 mm AIRWAY: Patent and unremarkable. HEART: Size within normal limits. There is moderate to severe coronary artery calcifications. MEDIASTINUM: No gross evidence of adenopathy. VASCULATURE: No aortic aneurysm. MUSCULOSKELETAL: No acute osseous abnormalities, mild multilevel disc degeneration changes of the spi ne. SOFT TISSUES/LYMPH NODES: Unremarkable. LOWER NECK: No significant findings. UPPER ABDOMEN: No significant findings. IMPRESSION: 1. No clinically significant pulmonary nodules. 2. Mild emphysema CT LUNG RAD AND CT CHEST RECOMMENDATION: Lung-Rad 2 Benign Appearance or Behavior: Continue annual sc reening with LDCT in 12 months. S Modifier (other clinically significant findings): None Recommend smoking cessation (if current smoker), or continuation of smoking cessation (if prior smoke r). Annual screening for lung cancer with low-dose computed tomography is recommended in adults ages 55 to 77 years who have a 30 pack-year smoking history and currently smoke or have quit within the pa st 15 years. Screening should be discontinued once a person has not smoked for 15 years or develops a health problem that substantially limits life expectancy or the ability or willingness to have curat mercedes lung surgery. Lung rads 2021 [email or web address]
== END | disposition home or self-care (01) ==
LOC: RADCTMAIN 12:55
PROVIDERS: ATTEND Family Medicine
DX: Z12.2 Encounter for screening for malignant neoplasm of respiratory organs (principal); J43.2 Centrilobular emphysema; Z87.891 Personal history of nicotine dependence
CPT/HCPCS: 71271